=== PATIENT | female | born 1935 | race Caucasian/White ===

== ENCOUNTER 2016-08-27 09:36 | Outpatient (CLI) | payer OTHER | END 2016-08-27 20:00 | disposition home or self-care (01) | LOC: SMA 09:36 | PROVIDERS: ATTEND Internal Medicine | DX: Z12.31 Encounter for screening mammogram for malignant neoplasm of breast (principal) | CPT/HCPCS: G0202 ==

== ENCOUNTER 2017-11-08 12:29 | Inpatient (IN) | payer OTHER ==
[2017-11-08] VITALS (10 sets, daily range): BP systolic 140–152
[~2017-11-08] VITALS: Ht 154.9 cm; Wt 59.4 kg
[2017-11-08 13:41] LABS: MEAN CORPUSCULAR HEMOGLOBIN 21 pg (27-31); MEAN CORPUSCULAR HGB CONC 30 % (32-36); MEAN CORPUSCULAR VOLUME 68 fL (79.0-98.0); PLATELET COUNT (AUTO) 267 K/uL (130-430); RED BLOOD CELL COUNT(AUTO) 2.24 MIL/uL (4.2-6.2); RED CELL DISTRIBUTION WIDTH 20.5 % (9.0-15.0); WHITE BLOOD COUNT (AUTO) 3.4 K/uL (4.8-10.8)
[2017-11-08 13:44] LABS: HEMOGLOBIN 4.6 g/dL (12.0-16.0)
[2017-11-08 13:45] LABS: HEMATOCRIT 15.2 % (36-48)
[2017-11-08 13:49] LABS: ANION GAP 9 (5-15); CALCIUM 9.1 mg/dL (8.4-11.0); CHLORIDE 103 mmol/L (98-107); CREATININE 0.79 mg/dL (0.55-1.30); GLUCOSE 120 mg/dL (70-99); POTASSIUM 3.4 mmol/L (3.5-5.1); SODIUM SERUM 136 mmol/L (136-145); UREA NITROGEN, BLOOD 9 mg/dL (8-21)
[2017-11-08 13:52] LABS: PROTHROMBIN TIME 10.2 SECS (9.5-12.5)
[2017-11-08 13:53] LABS: ALANINE AMINOTRANSFERASE 20 U/L (12-78); ALBUMIN 3.2 g/dL (3.4-4.8); ASPARTATE AMINOTRANSFERASE 17 U/L (10-37); TOTAL BILIRUBIN 0.4 mg/dL (0.0-1.0)
[2017-11-08] MEDS ORDERED: CHOL200041 PO (13:59)
[2017-11-08] MEDS ORDERED: AMLO5TAB92 PO (13:59)
[2017-11-08] MEDS ORDERED: GABA-529 PO (13:59)
[2017-11-08] MEDS ORDERED: SIMV20TA2 PO (13:59)
[2017-11-08] MEDS ORDERED: VIS25 PO (13:59)
[2017-11-08] MEDS ORDERED: POTA20TA83 PO (13:59)
[2017-11-08] MEDS ORDERED: LOSA100T3 PO (13:59)
[2017-11-08] MEDS ORDERED: HCT25 PO (13:59)
[2017-11-08 14:16] LABS: BAND % (MANUAL) 0 % (0-6); BASOPHILS % (MANUAL) 0 % (0-2); EOSINOPHILS % (MANUAL) 0 % (0-7); LYMPHOCYTES % (MANUAL) 24 % (20-46); MONOCYTES % (MANUAL) 12 % (0-11); TOTAL IRON BIND. CAPACITY 477 ug/dL (250-450)
[2017-11-08 15:14] LABS: BILIRUBIN,URINE NEGATIVE (NEGATIVE); BLOOD, URINE NEGATIVE (NEGATIVE); CLARITY/URINE CLEAR (CLEAR); COLOR,URINE YELLOW (YELLOW); GLUCOSE,URINE NEGATIVE (NEGATIVE); KETONES,URINE NEGATIVE (NEGATIVE); LEUKOCYTE ESTERASE ,URINE TRACE (NEGATIVE); NITRITE, URINE NEGATIVE (NEGATIVE); PROTEIN URINE NEGATIVE (NEGATIVE); UROBILINOGEN,URINE 0.2 (0.2-1.0)
[2017-11-08 15:24] LABS: BACTERIA,URINE FEW /HPF (None Seen); RBC,URINE 0-3 /HPF (0-3)
[2017-11-08] MEDS ORDERED: PANTOPRAZOLE SODIUM 40 MG/VIAL (PROTONIX) IVP ONE (16:45)
[2017-11-08] MEDS: D5NS 1,000 ML IV SCH (17:43)
[2017-11-08] MEDS ORDERED: DIATR MEGLU/DIATRIZ SOD 30 ML SOLUTION PO ONE (17:45)
[2017-11-08 18:56] LABS: HEMATOCRIT 24.3 % (36-48); HEMOGLOBIN 7.4 g/dL (12.0-16.0)
[2017-11-08] MEDS: PANTOPRAZOLE SODIUM 40 MG/VIAL (PROTONIX) IVP SCH (21:05)
[2017-11-09] VITALS (20 sets, daily range): BP systolic 116–177
[2017-11-09 01:35] LABS: HEMATOCRIT 28.4 % (36-48); HEMOGLOBIN 8.6 g/dL (12.0-16.0)
[2017-11-09] MEDS: D5NS 1,000 ML IV SCH ×3 (03:07→23:51)
[2017-11-09] MEDS ORDERED: IPRATROPIUM/ALBUTEROL SULFATE 3 ML AMPUL.NEB INH PRN (07:30)
[2017-11-09 07:40] LABS: HEMOGLOBIN 8.9 g/dL (12.0-16.0)
[2017-11-09] MEDS: PANTOPRAZOLE SODIUM 40 MG/VIAL (PROTONIX) IVP SCH ×2 (08:04→20:03)
[2017-11-09] MEDS ORDERED: LOSARTAN POTASSIUM 50 MG TABLET (COZAAR) PO ONE (10:00)
[2017-11-09] MEDS ORDERED: amLODIPine BESYLATE 5 MG TABLET PO ONE (10:00)
[2017-11-09] MEDS ORDERED: SIMETHICONE 40 MG/0.6 ML ML ONE (11:40)
[2017-11-09] MEDS ORDERED: fentaNYL CITRATE/PF 100 MCG/2 ML AMP ONE ×2 (11:40→15:20)
[2017-11-09] MEDS ORDERED: MIDAZOLAM HCL 5 MG/5 ML VIAL ONE ×2 (11:40→15:13)
[2017-11-09 13:32] LABS: HEMATOCRIT 26.6 % (36-48); HEMOGLOBIN 8.6 g/dL (12.0-16.0)
[2017-11-09] MEDS ORDERED: FLUMAZENIL 0.1 MG/ML IVP ONE (15:14)
[2017-11-09] MEDS ORDERED: EPINEPHrine JECT 1 MG/10 ML SYR ONE (15:20)
[2017-11-09] MEDS ORDERED: cloNIDine HCL 0.1 MG TABLET PO PRN (18:00)
[2017-11-09] MEDS ORDERED: SIMVASTATIN 20 MG TABLET PO SCH (18:00)
[2017-11-09 19:27] LABS: HEMATOCRIT 29.3 % (36-48); HEMOGLOBIN 9.4 g/dL (12.0-16.0)
[2017-11-09] MEDS ORDERED: GABAPENTIN 100 MG CAPSULE PO SCH (21:00)
[2017-11-10 01:09] LABS: HEMATOCRIT 28.7 % (36-48); HEMOGLOBIN 9.2 g/dL (12.0-16.0)
[2017-11-10 03:27] VITALS: BP_SYST 152
[2017-11-10 07:01] LABS: HEMATOCRIT 29.1 % (36-48); HEMOGLOBIN 9.2 g/dL (12.0-16.0)
[2017-11-10 08:00] VITALS: BP_SYST 163
[2017-11-10] MEDS: PANTOPRAZOLE SODIUM 40 MG/VIAL (PROTONIX) IVP SCH (08:54)
[2017-11-10] MEDS ORDERED: LOSARTAN POTASSIUM 50 MG TABLET (COZAAR) PO SCH (09:00)
[2017-11-10] MEDS ORDERED: amLODIPine BESYLATE 5 MG TABLET PO SCH (09:00)
[2017-11-10] MEDS: D5NS 1,000 ML IV SCH (09:05)
[2017-11-10 13:07] VITALS: BP_SYST 154
[2017-11-10 13:20] LABS: HEMATOCRIT 31.9 % (36-48); HEMOGLOBIN 10.3 g/dL (12.0-16.0)
[2017-11-10] MEDS ORDERED: OMEP20TA20 PO (14:30)
[2017-11-10 14:56] VITALS: BP_SYST 157
[2017-11-10 16:00] VITALS: BP_SYST 157
== END 2017-11-10 16:14 | disposition home or self-care (01) | DRG 378 ==
LOC: SED 12:29 → SIC 15:34 → SMU 11-09 19:34
PROVIDERS: ADMIT Internal Medicine Hospice and Palliative Medicine; ATTEND Internal Medicine Hospice and Palliative Medicine
PROC: 30253N1 (ICD-10-PCS; principal; 2017-11-08)
PROC: 0DB68ZX Excision of Stomach, Via Natural or Artificial Opening Endoscopic, Diagnostic (ICD-10-PCS; 2017-11-09)
DX: K92.2 Gastrointestinal hemorrhage, unspecified (principal); E44.1 Mild protein-calorie malnutrition; D50.9 Iron deficiency anemia, unspecified; I10 Essential (primary) hypertension; J45.909 Unspecified asthma, uncomplicated; K44.9 Diaphragmatic hernia without obstruction or gangrene; Z80.0 Family history of malignant neoplasm of digestive organs; Z88.0 Allergy status to penicillin; E11.9 Type 2 diabetes mellitus without complications
CPT/HCPCS: 36415; 43239; 71045; 80053; 81000-TC; 82272; 82550-TC; 83540-TC; 83550-TC; 84484; 85007; 85018-TC; 85027; 85610-TC; 85730-TC; 86886; 86900; 86901; 86920; 87081; 87086; 88305; 88312; 88313; 93005; 94640; 99291; C9113; J0171; J2250; J3010; J3490; J7030; J7042; J7050; J7620; P9021; Q9964

== ENCOUNTER 2021-08-06 11:05 | Inpatient (IN) | payer OTHER, MEDICAID ==
[~2021-08-06] VITALS: Ht 154.9 cm; Wt 53.5 kg
[~2021-08-06 11:05] MED LIST: ALBU2.5V7 INH; AMLO5TAB92 PO; CETI10CA PO; CHOL200041 PO; GABA-529 PO; LOSA100T3 PO; OMEP20TA20 PO; POTA-197 PO; SIMV20TA2 PO; VIS25 PO
[2021-08-06 11:13] VITALS: BP_SYST 136
--- NOTE | 2021-08-06 11:31 | NUR ---
Placed in room 5 . Placed on environmental monitoring specialist, blood pressure machine and pulse oximeter. To gown for exam. Side rails up. Report given to QUINTIN YOST.
--- NOTE | 2021-08-06 11:32 | NUR ---
Pt brought by family from home. Pt states she was advised by her primary care provider to come to the ER for low H&H levels. Pt is A&Ox3. Ambulatory with unsteady gait. Advised to not to get out of bed alone and to ask for help. Safety measures in place. Skin intact. No chest pain and no sob. Denies n/v. Allergic to Penicillin. Has hx of HTN. Bed in lowest position.
--- NOTE | 2021-08-06 11:34 | NUR ---
ER at bedside examining patient.
--- NOTE | 2021-08-06 11:48 | NUR ---
# 20 gauge angiocath placed to right forearm. Use of asceptic technique. Opsite placed over site. Blood return noted. Blood for lab drawn from site. Flushed with 10 cc of normal saline. No evidence of infiltration noted. Patient tolerated well.
--- NOTE | 2021-08-06 11:51 | NUR ---
Covid swab done and sent to lab.
[2021-08-06 11:57] LABS: BASOPHILS # (AUTO) 0.1 K/uL (0.0-0.2); BASOPHILS % (AUTO) 2.5 % (0.0-2.0); EOSINOPHILS % (AUTO) 0.2 % (0.0-4.0); HEMATOCRIT 22.9 % (36-48); HEMOGLOBIN 7.1 g/dL (12.0-16.0); LYMPHOCYTES # (AUTO) 0.8 K/uL (1.0-5.5); LYMPHOCYTES % (AUTO) 18.1 % (20.5-51.5); MEAN CORPUSCULAR HEMOGLOBIN 23 pg (27-31); MEAN CORPUSCULAR HGB CONC 31 % (32-36); MEAN CORPUSCULAR VOLUME 73 fL (79.0-98.0); MONOCYTES # (AUTO) 0.5 K/uL (0.0-1.0); MONOCYTES % (AUTO) 10.9 % (1.7-9.3); NEUTROPHILS # (AUTO) 2.9 K/uL (1.8-7.7); NEUTROPHILS % (AUTO) 68.3 % (40.0-70.0); PLATELET COUNT (AUTO) 352 K/uL (130-430); RED BLOOD CELL COUNT(AUTO) 3.12 MIL/uL (4.2-6.2); WHITE BLOOD COUNT (AUTO) 4.3 K/uL (4.8-10.8)
--- NOTE | 2021-08-06 12:04 | NUR ---
EKG performed at BS by FRANKIE Au. Physician given copy of EKG for review.
[2021-08-06 12:32] LABS: ALANINE AMINOTRANSFERASE 18 U/L (12-78); ALBUMIN 3.4 g/dL (3.4-4.8); ANION GAP 7 (5-15); ASPARTATE AMINOTRANSFERASE 22 U/L (10-37); CALCIUM 8.6 mg/dL (8.4-11.0); CHLORIDE 104 mmol/L (98-107); CREATININE 0.65 mg/dL (0.55-1.30); GLUCOSE 106 mg/dL (70-99); SODIUM SERUM 135 mmol/L (136-145); TOTAL BILIRUBIN 0.5 mg/dL (0.0-1.0); UREA NITROGEN, BLOOD 8 mg/dL (8-21)
[2021-08-06] MEDS ORDERED: POTASSIUM CHLORIDE 20 MEQ TAB.PRT.SR PO ONE (13:00)
--- NOTE | 2021-08-06 13:08 | NUR ---
Blood consent obtained and packet sent to lab.
--- NOTE | 2021-08-06 13:15 | NUR ---
Personal Belonging List Completed.
--- NOTE | 2021-08-06 13:28 | NUR ---
DR DOMINGO SPEAKING WITH DR FARMER
[2021-08-06] MEDS ORDERED: HYDROcodone/ACETAMIN 5-325 MG TAB (NORCO/ VICODIN) PO PRN (13:30)
[2021-08-06] MEDS ORDERED: LORazepam 2 MG/ML VIAL IVP PRN ×2 (13:30→13:45)
--- NOTE | 2021-08-06 13:34 | NUR ---
Pt unable to provide current list of her medications. Called her son but no answer.
--- NOTE | 2021-08-06 13:37 | NUR ---
Admit bed requested Patient will be admitted to care of . Admitted to Tele unit. Diagnosis Anemia Inpatient (Yes or No) Yes Observation (Yes or No) No Orientation concerns or request close to nursing station (Yes or No) No Covid Status Negative On vent or bipap No Isolation requirements No Needs a sitter No From Home (Yes or if No enter name of facility) Yes Requires Dialysis (Yes or No) No Med Rec Completed (Yes of No) Yes
[2021-08-06] MEDS ORDERED: MUPIROCIN 2% TOPICAL OINTMENT 22 GM NS PRN (13:45)
[2021-08-06] MEDS ORDERED: ZOLPIDEM TARTRATE 5 MG TABLET PO PRN (13:45)
[2021-08-06] MEDS ORDERED: DOCUSATE SODIUM 100 MG CAPSULE PO PRN (13:45)
[2021-08-06] MEDS ORDERED: ACETAMINOPHEN 325 MG TABLET PO PRN ×2 (13:45)
[2021-08-06] MEDS ORDERED: MORPHINE 2 MG/ML INJ. SYRINGE IVP PRN ×2 (13:45)
[2021-08-06] MEDS ORDERED: MAGNESIUM SULFATE 50 ML IV PRN (13:45)
[2021-08-06] MEDS ORDERED: ONDANSETRON HCL 4 MG/2 ML VIAL IVP PRN (13:45)
--- NOTE | 2021-08-06 14:10 | NUR ---
Patient will be admitted to care of QUINTIN Zhu. Admitted to Tele unit. Will go to room 101A. Belongings list completed. Complete and up to date summary report printed. SBAR report to be given at bedside with opportunity for questions.
[2021-08-06 15:00] VITALS: BP_SYST 145
[2021-08-06 15:06] VITALS: BP_SYST 145
--- NOTE | 2021-08-06 15:30 | NUR ---
CONSULTATION PAGED REASON FOR CONSULTATION ANEMIA WAS CONSULT CALED?Y PERSON WHO WAS NOTIFIED:TACOS CONSULTING PHYSICIAN:ALLEN MOODY DIE WELDER SPECIALTY:GI DIE WELDER PHONE NUMBER:[phone] REQUESTING PHYSICIAN:
[2021-08-06] MEDS ORDERED: BISACODYL 5 MG TABLET.DR (DULCOLAX) PO ONE (17:30)
[2021-08-06] MEDS ORDERED: GOLYTELY / COLYTE SOLUTION 4 LITERS PO ONE (17:30)
[2021-08-06] MEDS: SIMVASTATIN 20 MG TABLET PO SCH (19:19)
[2021-08-06 20:01] VITALS: BP_SYST 141
[2021-08-06] MEDS: GABAPENTIN 100 MG CAPSULE PO SCH (21:36)
--- NOTE | 2021-08-06 23:02 | NUR ---
BT INITIATION: Consent signed per patient agreeing to administration of blood. Blood has been type and crossmatched. Blood sent from blood bank. Information on unit of blood checked against patient wristband at bedside by two nurses. All information matches. Patient or responsible democrat informed of potential complications associated with blood transfusion. Informed of possible transfusion reaction symptoms. Aware of need to notify nurse at once of itching, shortness of breath, flushing, feeling of impending doom, or other symptoms not previously present. Vital signs taken within 15 minutes prior to initiation of transfusion. RN will remain with patient for first 15 minutes of transfusion at which time vital signs will be re-assessed.
[2021-08-07 00:57] VITALS: BP_SYST 127
--- NOTE | 2021-08-07 01:56 | NUR ---
blood transfusion complete of 1 unit no reactions noted; current vs: bp: 148/76. hr:70, :spo2: 99%, rr: 16, t:97.1
--- NOTE | 2021-08-07 06:38 | NUR ---
PT DID NOT FINISH THE GOLYTE WE TRIED MULTIPLE TIMES TO GET HER TO DRINK IT, SHE DRANK ABOUT HALF A GALLON, CALLED ROB VALDIVIA AND WAITING FOR CALL BACK.
--- NOTE | 2021-08-07 06:51 | NUR ---
SPOKE TO DR LANDAVERDE AND NOTIFIED HIM ABOUT THE PATIENT NOT FINISHING THE GOLYTE AND PT NOT LETTING US DO THE TAP ENEMA IN THE MORNING. STATED TO STILL KEEP HER NPO.
[2021-08-07 07:25] LABS: BASOPHILS % (AUTO) 0.6 % (0.0-2.0); EOSINOPHILS # (AUTO) 0.1 K/uL (0.0-0.4); EOSINOPHILS % (AUTO) 1.8 % (0.0-4.0); HEMATOCRIT 27.3 % (36-48); HEMOGLOBIN 8.8 g/dL (12.0-16.0); LYMPHOCYTES # (AUTO) 1.2 K/uL (1.0-5.5); LYMPHOCYTES % (AUTO) 29.5 % (20.5-51.5); MEAN CORPUSCULAR HEMOGLOBIN 24 pg (27-31); MEAN CORPUSCULAR HGB CONC 32 % (32-36); MEAN CORPUSCULAR VOLUME 75 fL (79.0-98.0); MONOCYTES # (AUTO) 0.6 K/uL (0.0-1.0); MONOCYTES % (AUTO) 13.4 % (1.7-9.3); NEUTROPHILS # (AUTO) 2.3 K/uL (1.8-7.7); NEUTROPHILS % (AUTO) 54.7 % (40.0-70.0); PLATELET COUNT (AUTO) 332 K/uL (130-430); RED BLOOD CELL COUNT(AUTO) 3.62 MIL/uL (4.2-6.2); WHITE BLOOD COUNT (AUTO) 4.2 K/uL (4.8-10.8)
[2021-08-07] MEDS ORDERED: MAGNESIUM CITRATE 300 ML ORAL SOLUTION PO ONE ×2 (07:45→08:15)
[2021-08-07 08:00] VITALS: BP_SYST 141
[2021-08-07 08:06] LABS: ANION GAP 9 (5-15); CALCIUM 8.4 mg/dL (8.4-11.0); CHLORIDE 106 mmol/L (98-107); CREATININE 0.64 mg/dL (0.55-1.30); GLUCOSE 107 mg/dL (70-99); POTASSIUM 3.2 mmol/L (3.5-5.1); SODIUM SERUM 139 mmol/L (136-145); UREA NITROGEN, BLOOD 11 mg/dL (8-21)
[2021-08-07] MEDS: PANTOPRAZOLE SODIUM 40 MG/VIAL (PROTONIX) IVP SCH (08:18)
[2021-08-07] MEDS: amLODIPine BESYLATE 5 MG TABLET PO SCH (08:20)
[2021-08-07] MEDS: LOSARTAN POTASSIUM 50 MG TABLET (COZAAR) PO SCH (09:00)
[2021-08-07] MEDS: CHOLECALCIFEROL (VITAMIN D3) 5,000 UNIT TABLET PO SCH (09:00)
[2021-08-07] MEDS ORDERED: SIMETHICONE 40 MG/0.6 ML ML ONE (10:31)
[2021-08-07] MEDS: MIDAZOLAM HCL 5 MG/5 ML VIAL ONE ×3 (10:59→11:22)
[2021-08-07] MEDS: MEPERIDINE 100 MG INJ. 100 MG/ML VIAL ONE ×3 (10:59→11:22)
[2021-08-07] MEDS ORDERED: DOCUSATE SODIUM 250 MG CAPSULE PO ONE (12:00)
[2021-08-07] MEDS: POLYETHYLENE GLYCOL 3350, 17 GM/ POWD.PACK PO SCH ×3 (13:00→20:13)
[2021-08-07 13:34] VITALS: BP_SYST 130
[2021-08-07 16:00] VITALS: BP_SYST 138
[2021-08-07] MEDS: SIMVASTATIN 20 MG TABLET PO SCH (18:00)
[2021-08-07 19:56] VITALS: BP_SYST 140
[2021-08-07] MEDS: GABAPENTIN 100 MG CAPSULE PO SCH (20:12)
[2021-08-07] MEDS: DOCUSATE SODIUM 250 MG CAPSULE PO SCH (20:13)
[2021-08-08 00:39] VITALS: BP_SYST 127
[2021-08-08] MEDS: ACETAMINOPHEN 325 MG TABLET PO PRN ×2 (05:55→09:43)
[2021-08-08 08:00] VITALS: BP_SYST 122
[2021-08-08 08:27] LABS: BASOPHILS % (AUTO) 0.5 % (0.0-2.0); EOSINOPHILS % (AUTO) 0.7 % (0.0-4.0); HEMATOCRIT 25.7 % (36-48); HEMOGLOBIN 8.1 g/dL (12.0-16.0); LYMPHOCYTES # (AUTO) 0.7 K/uL (1.0-5.5); MEAN CORPUSCULAR HEMOGLOBIN 24 pg (27-31); MEAN CORPUSCULAR HGB CONC 32 % (32-36); MEAN CORPUSCULAR VOLUME 76 fL (79.0-98.0); MONOCYTES # (AUTO) 0.7 K/uL (0.0-1.0); MONOCYTES % (AUTO) 11.2 % (1.7-9.3); NEUTROPHILS # (AUTO) 5.1 K/uL (1.8-7.7); NEUTROPHILS % (AUTO) 77.6 % (40.0-70.0); PLATELET COUNT (AUTO) 293 K/uL (130-430); RED BLOOD CELL COUNT(AUTO) 3.38 MIL/uL (4.2-6.2); RED CELL DISTRIBUTION WIDTH 20.3 % (9.0-15.0)
[2021-08-08 08:34] LABS: ANION GAP 9 (5-15); CALCIUM 7.8 mg/dL (8.4-11.0); CHLORIDE 106 mmol/L (98-107); CREATININE 0.64 mg/dL (0.55-1.30); GLUCOSE 87 mg/dL (70-99); SODIUM SERUM 140 mmol/L (136-145); UREA NITROGEN, BLOOD 7 mg/dL (8-21)
[2021-08-08] MEDS: DOCUSATE SODIUM 250 MG CAPSULE PO SCH ×2 (09:28→20:58)
[2021-08-08] MEDS: CHOLECALCIFEROL (VITAMIN D3) 5,000 UNIT TABLET PO SCH (09:28)
[2021-08-08] MEDS: amLODIPine BESYLATE 5 MG TABLET PO SCH (09:29)
[2021-08-08] MEDS: POLYETHYLENE GLYCOL 3350, 17 GM/ POWD.PACK PO SCH ×4 (09:30→20:58)
[2021-08-08] MEDS: PANTOPRAZOLE SODIUM 40 MG/VIAL (PROTONIX) IVP SCH (09:34)
[2021-08-08 09:41] LABS: POTASSIUM 2.2 mmol/L (3.5-5.1)
[2021-08-08] MEDS ORDERED: POTASSIUM CHLORIDE 40 MEQ in NS 250 ML IV ONE (10:00)
--- NOTE | 2021-08-08 10:09 | NUR ---
HIGH ALERT NOTE: Called Dr. Oleary identified within the medical roster to verify physician authenticity for krider orders.
[2021-08-08] MEDS: POTASSIUM CHLORIDE 20 mEq in 100 mL (PREMIX) 100 ML x 2 doses IV SCH ×2 (10:27→12:52)
[2021-08-08] MEDS: NACL 0.9% 1,000 ML IV SCH (10:27)
[2021-08-08 10:58] LABS: WHITE BLOOD COUNT (AUTO) 6.6 K/uL (4.8-10.8)
[2021-08-08] MEDS: LOSARTAN POTASSIUM 50 MG TABLET (COZAAR) PO SCH (12:36)
[2021-08-08 12:50] VITALS: BP_SYST 120
[2021-08-08 16:50] VITALS: BP_SYST 123
[2021-08-08] MEDS ORDERED: MAGNESIUM CITRATE 300 ML ORAL SOLUTION PO ONE (17:15)
[2021-08-08] MEDS ORDERED: SORBITOL 70% SOLUTION, 30 ML UDBTL PO ONE (17:30)
[2021-08-08] MEDS: SIMVASTATIN 20 MG TABLET PO SCH (19:37)
[2021-08-08 20:00] VITALS: BP_SYST 114
--- NOTE | 2021-08-08 20:00 | NUR ---
opening note patient was given education about clear liquid diet and bowel prep for Tuesday. Bed alarm is placed on and 2 side rails are up and bed is placed in lowest setting. patient is AOx 3
[2021-08-08] MEDS: GABAPENTIN 100 MG CAPSULE PO SCH (20:58)
[2021-08-09 00:01] VITALS: BP_SYST 110
--- NOTE | 2021-08-09 00:30 | NUR ---
incontinent the patient is having recurrent incontinents of the bowel due to multiple laxatives given.
[2021-08-09] MEDS: NACL 0.9% 1,000 ML IV SCH ×2 (04:31→18:30)
--- NOTE | 2021-08-09 07:30 | NUR ---
Closing Patient got up to the bedside commode with x1 assist and had multiple brown bowel movements. IV fluids running as ordered. No complaint of pain, unlabored breathing on room air. Care endorsed to oncoming nurse.
[2021-08-09 08:00] VITALS: BP_SYST 141
[2021-08-09 08:03] LABS: BASOPHILS % (AUTO) 0.2 % (0.0-2.0); EOSINOPHILS % (AUTO) 0.1 % (0.0-4.0); HEMATOCRIT 24.5 % (36-48); HEMOGLOBIN 7.7 g/dL (12.0-16.0); LYMPHOCYTES # (AUTO) 0.8 K/uL (1.0-5.5); LYMPHOCYTES % (AUTO) 7.2 % (20.5-51.5); MEAN CORPUSCULAR HEMOGLOBIN 24 pg (27-31); MEAN CORPUSCULAR HGB CONC 32 % (32-36); MEAN CORPUSCULAR VOLUME 77 fL (79.0-98.0); MONOCYTES # (AUTO) 1.6 K/uL (0.0-1.0); MONOCYTES % (AUTO) 15.1 % (1.7-9.3); NEUTROPHILS # (AUTO) 8.4 K/uL (1.8-7.7); NEUTROPHILS % (AUTO) 77.4 % (40.0-70.0); PLATELET COUNT (AUTO) 272 K/uL (130-430); RED CELL DISTRIBUTION WIDTH 20.3 % (9.0-15.0)
[2021-08-09] MEDS ORDERED: SORBITOL 70% SOLUTION, 30 ML UDBTL PO ONE (08:30)
[2021-08-09 08:33] LABS: ANION GAP 8 (5-15); CALCIUM 8.1 mg/dL (8.4-11.0); CHLORIDE 109 mmol/L (98-107); CREATININE 0.66 mg/dL (0.55-1.30); GLUCOSE 110 mg/dL (70-99); SODIUM SERUM 140 mmol/L (136-145); UREA NITROGEN, BLOOD 10 mg/dL (8-21)
[2021-08-09] MEDS: POLYETHYLENE GLYCOL 3350, 17 GM/ POWD.PACK PO SCH ×7 (09:00→21:20)
[2021-08-09] MEDS: ACETAMINOPHEN 325 MG TABLET PO PRN ×2 (09:20→18:27)
[2021-08-09] MEDS: amLODIPine BESYLATE 5 MG TABLET PO SCH (09:34)
[2021-08-09] MEDS: PANTOPRAZOLE SODIUM 40 MG/VIAL (PROTONIX) IVP SCH (09:34)
[2021-08-09 09:35] LABS: POTASSIUM 2.8 mmol/L (3.5-5.1)
[2021-08-09] MEDS: DOCUSATE SODIUM 250 MG CAPSULE PO SCH ×2 (09:35→21:20)
[2021-08-09] MEDS: CHOLECALCIFEROL (VITAMIN D3) 5,000 UNIT TABLET PO SCH (09:35)
[2021-08-09] MEDS: POTASSIUM CHLORIDE 20 MEQ TAB.PRT.SR PO PRN (09:54)
[2021-08-09] MEDS ORDERED: POTASSIUM CHLORIDE 20 MEQ TAB.PRT.SR PO ONE (11:00)
[2021-08-09 11:15] LABS: WHITE BLOOD COUNT (AUTO) 10.8 K/uL (4.8-10.8)
[2021-08-09] MEDS ORDERED: POTASSIUM CHLORIDE 40 MEQ in NS 250 ML IV ONE (12:00)
[2021-08-09] MEDS: LOSARTAN POTASSIUM 50 MG TABLET (COZAAR) PO SCH (12:18)
[2021-08-09 12:36] VITALS: BP_SYST 106
--- NOTE | 2021-08-09 16:15 | NUR ---
Stools are very frequent and clear. No further prep will be administered
[2021-08-09 16:55] VITALS: BP_SYST 109
[2021-08-09] MEDS ORDERED: BISACODYL 5 MG TABLET.DR (DULCOLAX) PO ONE (17:00)
[2021-08-09] MEDS: SIMVASTATIN 20 MG TABLET PO SCH (18:27)
--- NOTE | 2021-08-09 18:45 | NUR ---
Miss Kebede has been assessed as indicated. She has been successfully treated for a headache x2 this shift . She has been stooling frequently the output has no stool but has taken on an orange color. She is forgetful and has to be frequently redirected to stay in the bed and wait for assistance. She has voided and stooled on the floor often. She is aware of and compliant with the plan to have a colonoscopy tomorrow
[2021-08-09 19:00] VITALS: BP_SYST 139
[2021-08-09] MEDS ORDERED: MAGNESIUM CITRATE 300 ML ORAL SOLUTION PO ONE (19:00)
--- NOTE | 2021-08-09 19:15 | NUR ---
Hand off has been given to sylvia
--- NOTE | 2021-08-09 19:15 | NUR ---
change of shift.pt.presents quiescent affect;calm,resting.pt.to submit to colonoscopy in am.pt.in accord.pt.utilizing bsc;w/in access of the pt.pt.presents iv access location:rt.forearm,intact;patent iv fluids infusing.no c/o pain,nausea.pt.capable to reposition self.general status stable.respiratory status stable;unlabored@room air.call light/telephone w/in access of the pt.
[2021-08-09 20:00] VITALS: BP_SYST 139
--- NOTE | 2021-08-09 20:00 | NUR ---
pt.assessed.v/s assessed values wnl.pt.assisted to the bsc.per frankie;manager cost.pt.assisted return to bed. pt.repositioned.no c/pain,nausea.iv access intact;patent.i have apprised the pt.that snacks/beverages are available until midnight:diet converts to npo;colonoscopy in am.no requests posited@this hour.pt.capable to reposition self.call light/telephone placed w/in access of the pt.
--- NOTE | 2021-08-09 21:00 | NUR ---
2100p medications administered.pt.capable to ingest the po medications w/out difficulty.no c/o pain.nausea. no requests posited@this hour.call light/telephone placed w/in access of the pt.
[2021-08-09] MEDS: GABAPENTIN 100 MG CAPSULE PO SCH (21:20)
--- NOTE | 2021-08-09 22:00 | NUR ---
pt.assessed.pt.presents quiescent affect;calm,somnolent.per flacc pain mgx pt.absent facial grimaces/body posturing. pt.assessed for cleanliness.pt.capable to reposition self.iv access intact;patent.bsc w/in access of the pt.call light/ telephone placed w/in access of the pt.
[2021-08-10] VITALS: BP_SYST 132
--- NOTE | 2021-08-10 | NUR ---
pt.assessed.v/s assessed values wnl.no c/o pain,nausea.re-iterated to pt/that diet status converted to npo status;colonoscopy in am.pt.capable to reposition self.bsc w/in access of the pt.iv access intact;patent.call light/telephone placed w/in access of the pt.
--- NOTE | 2021-08-10 02:00 | NUR ---
pt.assessed.pt.assisted to the bsc..pt.returned to bed/repositioned.iv access intact;patent.general status stable respiratory status stable;unlabored.call light/telephone placed w/in access of the pt.
--- NOTE | 2021-08-10 04:00 | NUR ---
pt.assessed.pt.presents quiescent affect;calm,somnolent.per flacc pain mgx pt.absent facial grimaces/body posturing. pt.assessed for cleanliness.pt.repositioned.bsc w/in access of the pt.call light/telephone placed w/in access of the pt.
--- NOTE | 2021-08-10 06:35 | NUR ---
pt.assessed.pt.repositioned.no c/o pain,nausea.iv access intact;patent.call light/telephone w/in access of the [place] [place] pt. Addendum: 08/10/21 at 0701 by Pradeep Edgar RN pt.refused enema.
[2021-08-10 07:18] LABS: BASOPHILS % (AUTO) 0.2 % (0.0-2.0); EOSINOPHILS # (AUTO) 0.1 K/uL (0.0-0.4); EOSINOPHILS % (AUTO) 1.2 % (0.0-4.0); HEMATOCRIT 26.5 % (36-48); HEMOGLOBIN 8.3 g/dL (12.0-16.0); LYMPHOCYTES % (AUTO) 14.2 % (20.5-51.5); MEAN CORPUSCULAR HEMOGLOBIN 24 pg (27-31); MEAN CORPUSCULAR HGB CONC 31 % (32-36); MEAN CORPUSCULAR VOLUME 77 fL (79.0-98.0); MONOCYTES # (AUTO) 0.8 K/uL (0.0-1.0); MONOCYTES % (AUTO) 11.3 % (1.7-9.3); NEUTROPHILS # (AUTO) 5.3 K/uL (1.8-7.7); NEUTROPHILS % (AUTO) 73.1 % (40.0-70.0); PLATELET COUNT (AUTO) 280 K/uL (130-430); RED BLOOD CELL COUNT(AUTO) 3.47 MIL/uL (4.2-6.2); RED CELL DISTRIBUTION WIDTH 20.4 % (9.0-15.0); WHITE BLOOD COUNT (AUTO) 7.2 K/uL (4.8-10.8)
[2021-08-10 07:27] LABS: INR 0.9 (0.8-1.2); PROTHROMBIN TIME 9.2 SECS (9.5-12.5)
[2021-08-10 07:33] LABS: ANION GAP 7 (5-15); CALCIUM 8.3 mg/dL (8.4-11.0); CHLORIDE 109 mmol/L (98-107); CREATININE 0.66 mg/dL (0.55-1.30); GLUCOSE 94 mg/dL (70-99); POTASSIUM 3.6 mmol/L (3.5-5.1); SODIUM SERUM 138 mmol/L (136-145); UREA NITROGEN, BLOOD 7 mg/dL (8-21)
[2021-08-10] MEDS ORDERED: SIMETHICONE 40 MG/0.6 ML ML ONE (07:38)
[2021-08-10 08:00] VITALS: BP_SYST 152
[2021-08-10] MEDS: POLYETHYLENE GLYCOL 3350, 17 GM/ POWD.PACK PO SCH ×4 (08:44→21:37)
[2021-08-10] MEDS: DOCUSATE SODIUM 250 MG CAPSULE PO SCH ×2 (08:44→21:37)
[2021-08-10 12:23] VITALS: BP_SYST 142
[2021-08-10] MEDS: LOSARTAN POTASSIUM 50 MG TABLET (COZAAR) PO SCH (13:37)
[2021-08-10] MEDS: PANTOPRAZOLE SODIUM 40 MG/VIAL (PROTONIX) IVP SCH (13:38)
[2021-08-10] MEDS: amLODIPine BESYLATE 5 MG TABLET PO SCH (13:39)
[2021-08-10] MEDS: CHOLECALCIFEROL (VITAMIN D3) 5,000 UNIT TABLET PO SCH (13:39)
[2021-08-10] MEDS: MIDAZOLAM HCL 5 MG/5 ML VIAL ONE ×4 (15:00→15:21)
[2021-08-10] MEDS: fentaNYL CITRATE/PF 100 MCG/2 ML AMP ONE ×4 (15:02→15:16)
[2021-08-10 16:00] VITALS: BP_SYST 157
--- NOTE | 2021-08-10 16:00 | NUR ---
Miss Fournier has retunred from GI. This travel writer was informed that the colonoscopy was incomplete. She will need a Barium swallow exam. This will be completed tomorrow She will be permitted to have a clear liquid dinner and will be NPO after MN for the procedure. She is resting quietly a this time Addendum: 08/10/21 at 1642 by Lashonda Reeder RN Louis Camacho ([phone]) Miss Kebede's son has been made aware of he return from GI lab. he is also aware of the planned barium swallow exam for tomorrow
[2021-08-10 16:30] VITALS: BP_SYST 159
[2021-08-10] MEDS: SIMVASTATIN 20 MG TABLET PO SCH (18:35)
[2021-08-10] MEDS: NACL 0.9% 1,000 ML IV SCH (18:35)
--- NOTE | 2021-08-10 18:45 | NUR ---
Miss Kebede has been assessed as indicated. she continues to deny pain. She has gone to GI lab for a colonoscopy. she will have a barium slow test as a follow up procedure tomorrow. she is having a clear liquid dinner at this time and has tolerated it well. She is resting comfortably with no s/s of distress or discomfort
--- NOTE | 2021-08-10 19:25 | NUR ---
Handoff has been given to Mio
[2021-08-10 20:20] VITALS: BP_SYST 162
[2021-08-10] MEDS: GABAPENTIN 100 MG CAPSULE PO SCH (21:37)
[2021-08-11 00:31] VITALS: BP_SYST 141
[2021-08-11] MEDS: NACL 0.9% 1,000 ML IV SCH (05:15)
[2021-08-11 07:30] LABS: BASOPHILS % (AUTO) 0.4 % (0.0-2.0); EOSINOPHILS # (AUTO) 0.2 K/uL (0.0-0.4); EOSINOPHILS % (AUTO) 2.8 % (0.0-4.0); HEMATOCRIT 25.7 % (36-48); HEMOGLOBIN 8.1 g/dL (12.0-16.0); LYMPHOCYTES # (AUTO) 0.9 K/uL (1.0-5.5); MEAN CORPUSCULAR HEMOGLOBIN 24 pg (27-31); MEAN CORPUSCULAR HGB CONC 31 % (32-36); MEAN CORPUSCULAR VOLUME 76 fL (79.0-98.0); MONOCYTES # (AUTO) 0.8 K/uL (0.0-1.0); MONOCYTES % (AUTO) 14.1 % (1.7-9.3); NEUTROPHILS % (AUTO) 67.7 % (40.0-70.0); PLATELET COUNT (AUTO) 309 K/uL (130-430); RED CELL DISTRIBUTION WIDTH 21.3 % (9.0-15.0); WHITE BLOOD COUNT (AUTO) 5.9 K/uL (4.8-10.8)
[2021-08-11 07:59] LABS: ANION GAP 9 (5-15); CALCIUM 8.5 mg/dL (8.4-11.0); CHLORIDE 105 mmol/L (98-107); GLUCOSE 79 mg/dL (70-99); SODIUM SERUM 137 mmol/L (136-145); UREA NITROGEN, BLOOD 5 mg/dL (8-21)
[2021-08-11 08:00] VITALS: BP_SYST 121
[2021-08-11] MEDS: DOCUSATE SODIUM 250 MG CAPSULE PO SCH (08:02)
[2021-08-11] MEDS: POLYETHYLENE GLYCOL 3350, 17 GM/ POWD.PACK PO SCH ×2 (08:02→08:03)
--- NOTE | 2021-08-11 09:00 | NUR ---
miss Kebede has been assessed as indicated. She continues to deny pain. She anticipates that she will be DC home today. We are currently awaiting results of barium swallow exam. At this time she is resting quietly. She has been provided with a soft breakfast and has tolerated this well.
[2021-08-11 09:02] LABS: POTASSIUM 2.8 mmol/L (3.5-5.1)
--- NOTE | 2021-08-11 09:10 | NUR ---
Dr. Jain at bedside made aware of Potassium level. New orders received
[2021-08-11] MEDS: PANTOPRAZOLE SODIUM 40 MG/VIAL (PROTONIX) IVP SCH (09:58)
[2021-08-11] MEDS: LOSARTAN POTASSIUM 50 MG TABLET (COZAAR) PO SCH (09:59)
[2021-08-11] MEDS: POTASSIUM CHLORIDE 20 MEQ TAB.PRT.SR PO PRN (09:59)
[2021-08-11] MEDS: CHOLECALCIFEROL (VITAMIN D3) 5,000 UNIT TABLET PO SCH (09:59)
[2021-08-11] MEDS: amLODIPine BESYLATE 5 MG TABLET PO SCH (09:59)
[2021-08-11 12:00] VITALS: BP_SYST 139
[2021-08-11] MEDS ORDERED: POTASSIUM CHLORIDE 20 MEQ TAB.PRT.SR PO ONE (13:00)
[2021-08-11 13:41] VITALS: BP_SYST 121
--- NOTE | 2021-08-11 15:30 | NUR ---
miss Kebede has been DC to home. DC instructions were reviewed with her as well as her son. They both expressed that they understood and signed a document to illustrate this. IV access was removed. the heart monitor was removed. At the time of DC Miss Kebede was compliant with the plan to DC home and was pleased that her son was picking her up. There were no s/s of distress or discomfort noted.She was escorted to the front door via WC and was driven away in a private vehicle.
== END 2021-08-11 15:35 | disposition home or self-care (01) | DRG 392 ==
LOC: SED 11:05 → SMU 13:28 → STU 14:09
PROVIDERS: ADMIT Family Medicine; ATTEND Internal Medicine Hospice and Palliative Medicine
PROC: 30233N1 Transfusion of Nonautologous Red Blood Cells into Peripheral Vein, Percutaneous Approach (ICD-10-PCS; 2021-08-06)
PROC: 0DB78ZX Excision of Stomach, Pylorus, Via Natural or Artificial Opening Endoscopic, Diagnostic (ICD-10-PCS; principal; 2021-08-07 10:30)
PROC: 0DJD8ZZ Inspection of Lower Intestinal Tract, Via Natural or Artificial Opening Endoscopic (ICD-10-PCS; 2021-08-07 10:30)
PROC: 0DJD8ZZ Inspection of Lower Intestinal Tract, Via Natural or Artificial Opening Endoscopic (ICD-10-PCS; 2021-08-10)
DX: K29.70 Gastritis, unspecified, without bleeding (principal); K64.8 Other hemorrhoids; K57.30 Diverticulosis of large intestine without perforation or abscess without bleeding; D50.9 Iron deficiency anemia, unspecified; K44.9 Diaphragmatic hernia without obstruction or gangrene; E78.5 Hyperlipidemia, unspecified; I10 Essential (primary) hypertension; E87.6 Hypokalemia; Z20.822 Contact with and (suspected) exposure to COVID-19; J45.909 Unspecified asthma, uncomplicated; Z88.0 Allergy status to penicillin; Z79.899 Other long term (current) drug therapy; Z90.710 Acquired absence of both cervix and uterus
CPT/HCPCS: 36415; 36430; 43239; 45378; 74270-TC; 80048; 80053; 83735; 84132; 85025; 85610-TC; 85730-TC; 86886; 86900; 86901; 86920; 87081; 88305; 88312; 88313; 93005; 99285; C9113; G0378; J2060; J2175; J2250; J3010; J3480; J7050; P9021

== ENCOUNTER 2021-09-28 10:39 | Inpatient (IN) | payer OTHER, MEDICAID ==
[~2021-09-28] VITALS: Ht 154.9 cm; Wt 53.5 kg
[2021-09-28 11:19] VITALS: BP_SYST 136
[2021-09-28 12:41] LABS: BASOPHILS % (AUTO) 0.5 % (0.0-2.0); EOSINOPHILS # (AUTO) 0.1 K/uL (0.0-0.4); EOSINOPHILS % (AUTO) 1.2 % (0.0-4.0); HEMATOCRIT 23.3 % (36-48); HEMOGLOBIN 7.6 g/dL (12.0-16.0); LYMPHOCYTES # (AUTO) 0.7 K/uL (1.0-5.5); LYMPHOCYTES % (AUTO) 14.2 % (20.5-51.5); MEAN CORPUSCULAR HEMOGLOBIN 27 pg (27-31); MEAN CORPUSCULAR HGB CONC 33 % (32-36); MEAN CORPUSCULAR VOLUME 82 fL (79.0-98.0); MONOCYTES # (AUTO) 0.4 K/uL (0.0-1.0); MONOCYTES % (AUTO) 8.2 % (1.7-9.3); NEUTROPHILS % (AUTO) 75.9 % (40.0-70.0); PLATELET COUNT (AUTO) 475 K/uL (130-430); RED BLOOD CELL COUNT(AUTO) 2.84 MIL/uL (4.2-6.2); WHITE BLOOD COUNT (AUTO) 5.2 K/uL (4.8-10.8)
[2021-09-28 12:55] LABS: ANION GAP 9 (5-15); CALCIUM 8.7 mg/dL (8.4-11.0); CHLORIDE 106 mmol/L (98-107); CREATININE 0.64 mg/dL (0.55-1.30); GLUCOSE 129 mg/dL (70-99); POTASSIUM 4.4 mmol/L (3.5-5.1); SODIUM SERUM 140 mmol/L (136-145); UREA NITROGEN, BLOOD 12 mg/dL (8-21)
[2021-09-28 13:01] LABS: ALBUMIN 2.7 g/dL (3.4-4.8); ASPARTATE AMINOTRANSFERASE 14 U/L (10-37); TOTAL BILIRUBIN 0.2 mg/dL (0.0-1.0)
[2021-09-28 13:18] LABS: ALANINE AMINOTRANSFERASE 10 U/L (12-78)
[2021-09-28 13:37] LABS: INR 0.9 (0.8-1.2); PROTHROMBIN TIME 9.9 SECS (9.5-12.5)
[2021-09-28] MEDS ORDERED: PANTOPRAZOLE SODIUM 40 MG/VIAL (PROTONIX) ONE (16:28)
[2021-09-28] MEDS ORDERED: PANTOPRAZOLE SODIUM 80 MG in NS 100 ML IV ONE (16:30)
[2021-09-28] MEDS ORDERED: ONDANSETRON HCL 4 MG/2 ML VIAL IVP PRN (18:00)
[2021-09-28] MEDS ORDERED: ALBUTEROL SULFATE 0.083% 2.5 MG/3 ML VIAL.NEB INH PRN (18:00)
[2021-09-28] MEDS: D5/0.45 NS 1,000 ML IV SCH (18:43)
[2021-09-28 20:59] VITALS: BP_SYST 131
[2021-09-29] MEDS: D5/0.45 NS 1,000 ML IV SCH ×3 (03:00→23:13)
[2021-09-29 07:34] LABS: BASOPHILS % (AUTO) 1.1 % (0.0-2.0); EOSINOPHILS # (AUTO) 0.1 K/uL (0.0-0.4); EOSINOPHILS % (AUTO) 3.7 % (0.0-4.0); LYMPHOCYTES # (AUTO) 0.8 K/uL (1.0-5.5); LYMPHOCYTES % (AUTO) 20.4 % (20.5-51.5); MEAN CORPUSCULAR HEMOGLOBIN 27 pg (27-31); MEAN CORPUSCULAR HGB CONC 32 % (32-36); MEAN CORPUSCULAR VOLUME 82 fL (79.0-98.0); MONOCYTES # (AUTO) 0.4 K/uL (0.0-1.0); MONOCYTES % (AUTO) 9.6 % (1.7-9.3); NEUTROPHILS # (AUTO) 2.5 K/uL (1.8-7.7); NEUTROPHILS % (AUTO) 65.2 % (40.0-70.0); PLATELET COUNT (AUTO) 363 K/uL (130-430); RED BLOOD CELL COUNT(AUTO) 2.57 MIL/uL (4.2-6.2); RED CELL DISTRIBUTION WIDTH 29.7 % (9.0-15.0); WHITE BLOOD COUNT (AUTO) 3.8 K/uL (4.8-10.8)
[2021-09-29 07:56] LABS: ANION GAP 10 (5-15); CALCIUM 8.1 mg/dL (8.4-11.0); CHLORIDE 109 mmol/L (98-107); CREATININE 0.55 mg/dL (0.55-1.30); GLUCOSE 93 mg/dL (70-99); POTASSIUM 3.3 mmol/L (3.5-5.1); SODIUM SERUM 144 mmol/L (136-145); UREA NITROGEN, BLOOD 9 mg/dL (8-21)
[2021-09-29 07:59] LABS: HEMATOCRIT 21.2 % (36-48); HEMOGLOBIN 6.8 g/dL (12.0-16.0)
[2021-09-29 08:00] VITALS: BP_SYST 125
[2021-09-29] MEDS: PANTOPRAZOLE SODIUM 40 MG/VIAL (PROTONIX) IVP SCH ×2 (09:10→20:51)
[2021-09-29] MEDS: KCL 20 mEq in 100 mL (PREMIX) 100 ML IV SCH ×2 (12:14→12:22)
[2021-09-29 15:40] VITALS: BP_SYST 118
[2021-09-29 15:55] VITALS: BP_SYST 119
[2021-09-29 20:00] VITALS: BP_SYST 124
[2021-09-29] MEDS: LORazepam 2 MG/ML VIAL IVP PRN (20:51)
[2021-09-30] VITALS (7 sets, daily range): BP systolic 118–194
[2021-09-30] MEDS ORDERED: fentaNYL CITRATE/PF 100 MCG/2 ML AMP ONE (06:56)
[2021-09-30] MEDS ORDERED: SIMETHICONE 40 MG/0.6 ML ML ONE (06:56)
[2021-09-30] MEDS ORDERED: MIDAZOLAM HCL 5 MG/5 ML VIAL ONE (06:56)
[2021-09-30] MEDS ORDERED: BENZOCAINE 20% 0.5mL UD SPRAY MM ONE (07:34)
[2021-09-30 08:33] LABS: ANION GAP 9 (5-15); CALCIUM 8.4 mg/dL (8.4-11.0); CHLORIDE 110 mmol/L (98-107); CREATININE 0.59 mg/dL (0.55-1.30); GLUCOSE 73 mg/dL (70-99); POTASSIUM 3.2 mmol/L (3.5-5.1); SODIUM SERUM 144 mmol/L (136-145); UREA NITROGEN, BLOOD 6 mg/dL (8-21)
[2021-09-30 08:47] LABS: BASOPHILS % (AUTO) 0.6 % (0.0-2.0); EOSINOPHILS # (AUTO) 0.2 K/uL (0.0-0.4); EOSINOPHILS % (AUTO) 5.3 % (0.0-4.0); HEMATOCRIT 28.8 % (36-48); HEMOGLOBIN 9.4 g/dL (12.0-16.0); MEAN CORPUSCULAR HEMOGLOBIN 28 pg (27-31); MEAN CORPUSCULAR HGB CONC 33 % (32-36); MEAN CORPUSCULAR VOLUME 84 fL (79.0-98.0); MONOCYTES # (AUTO) 0.5 K/uL (0.0-1.0); MONOCYTES % (AUTO) 11.8 % (1.7-9.3); NEUTROPHILS # (AUTO) 2.1 K/uL (1.8-7.7); NEUTROPHILS % (AUTO) 55.3 % (40.0-70.0); PLATELET COUNT (AUTO) 360 K/uL (130-430); RED BLOOD CELL COUNT(AUTO) 3.42 MIL/uL (4.2-6.2); RED CELL DISTRIBUTION WIDTH 25.5 % (9.0-15.0); WHITE BLOOD COUNT (AUTO) 3.9 K/uL (4.8-10.8)
[2021-09-30] MEDS: D5/0.45 NS 1,000 ML IV SCH ×2 (09:00→16:21)
[2021-09-30] MEDS ORDERED: POTASSIUM CHLORIDE 20 MEQ TAB.PRT.SR PO ONE (10:00)
[2021-09-30] MEDS: PANTOPRAZOLE SODIUM 40 MG/VIAL (PROTONIX) IVP SCH ×2 (10:15→20:53)
[2021-09-30] MEDS ORDERED: LOSARTAN POTASSIUM 50 MG TABLET (COZAAR) PO ONE (14:15)
[2021-09-30] MEDS ORDERED: amLODIPine BESYLATE 5 MG TABLET PO ONE (14:15)
[2021-09-30] MEDS ORDERED: GABAPENTIN 100 MG CAPSULE PO SCH (21:00)
[2021-09-30] MEDS ORDERED: SIMVASTATIN 20 MG TABLET PO SCH (21:00)
[2021-09-30] MEDS: LORazepam 2 MG/ML VIAL IVP PRN (21:40)
[2021-10-01] VITALS (7 sets, daily range): BP systolic 120–151
[2021-10-01] MEDS: D5/0.45 NS 1,000 ML IV SCH ×2 (04:26→15:00)
[2021-10-01 07:35] LABS: ANION GAP 7 (5-15); CALCIUM 8.5 mg/dL (8.4-11.0); CHLORIDE 109 mmol/L (98-107); CREATININE 0.58 mg/dL (0.55-1.30); GLUCOSE 87 mg/dL (70-99); POTASSIUM 3.5 mmol/L (3.5-5.1); SODIUM SERUM 142 mmol/L (136-145); UREA NITROGEN, BLOOD 7 mg/dL (8-21)
[2021-10-01 08:08] LABS: BASOPHILS % (AUTO) 0.6 % (0.0-2.0); EOSINOPHILS # (AUTO) 0.3 K/uL (0.0-0.4); HEMATOCRIT 28.7 % (36-48); HEMOGLOBIN 9.4 g/dL (12.0-16.0); LYMPHOCYTES # (AUTO) 0.9 K/uL (1.0-5.5); LYMPHOCYTES % (AUTO) 20.2 % (20.5-51.5); MEAN CORPUSCULAR HEMOGLOBIN 28 pg (27-31); MEAN CORPUSCULAR HGB CONC 33 % (32-36); MEAN CORPUSCULAR VOLUME 84 fL (79.0-98.0); MONOCYTES # (AUTO) 0.5 K/uL (0.0-1.0); MONOCYTES % (AUTO) 11.4 % (1.7-9.3); NEUTROPHILS # (AUTO) 2.8 K/uL (1.8-7.7); NEUTROPHILS % (AUTO) 61.8 % (40.0-70.0); PLATELET COUNT (AUTO) 356 K/uL (130-430); RED BLOOD CELL COUNT(AUTO) 3.41 MIL/uL (4.2-6.2); WHITE BLOOD COUNT (AUTO) 4.5 K/uL (4.8-10.8)
[2021-10-01] MEDS: PANTOPRAZOLE SODIUM 40 MG/VIAL (PROTONIX) IVP SCH (08:37)
[2021-10-01] MEDS ORDERED: POTASSIUM CHLORIDE 20 MEQ TAB.PRT.SR PO SCH (09:00)
[2021-10-01] MEDS ORDERED: PANTOPRAZOLE SODIUM 40 MG TAB PO SCH (09:00)
[2021-10-01] MEDS ORDERED: LOSARTAN POTASSIUM 50 MG TABLET (COZAAR) PO SCH (09:00)
[2021-10-01] MEDS ORDERED: CHOLECALCIFEROL (VITAMIN D3) 2,000 UNIT TABLET PO SCH (09:00)
[2021-10-01] MEDS ORDERED: amLODIPine BESYLATE 5 MG TABLET PO SCH (09:00)
[2021-10-01] MEDS ORDERED: FERR-69 PO (09:46)
[2021-10-01] MEDS ORDERED: DEXL60CA4 PO (09:46)
[2021-10-01] MEDS ORDERED: SUCRALFATE 1 GM/10 ML UDC GT SCH (11:30)
== END 2021-10-01 16:05 | disposition home health service (06) | DRG 377 ==
LOC: SED 10:39 → SMU 16:59
PROVIDERS: ADMIT Preventive Medicine Preventive Medicine/Occupational Environmental Medicine; ATTEND Preventive Medicine Preventive Medicine/Occupational Environmental Medicine
PROC: 30233N1 Transfusion of Nonautologous Red Blood Cells into Peripheral Vein, Percutaneous Approach (ICD-10-PCS; 2021-09-29)
PROC: 0DB78ZX Excision of Stomach, Pylorus, Via Natural or Artificial Opening Endoscopic, Diagnostic (ICD-10-PCS; 2021-09-30)
PROC: 0DB98ZX Excision of Duodenum, Via Natural or Artificial Opening Endoscopic, Diagnostic (ICD-10-PCS; principal; 2021-09-30 07:30)
DX: K25.4 Chronic or unspecified gastric ulcer with hemorrhage (principal); E43 Unspecified severe protein-calorie malnutrition; K44.9 Diaphragmatic hernia without obstruction or gangrene; K57.90 Diverticulosis of intestine, part unspecified, without perforation or abscess without bleeding; D64.9 Anemia, unspecified; J45.909 Unspecified asthma, uncomplicated; I10 Essential (primary) hypertension; E11.9 Type 2 diabetes mellitus without complications; Z20.822 Contact with and (suspected) exposure to COVID-19; D72.819 Decreased white blood cell count, unspecified; K29.60 Other gastritis without bleeding; Z88.0 Allergy status to penicillin; Z68.22 Body mass index [BMI] 22.0-22.9, adult
CPT/HCPCS: 36415; 36430; 43239; 71045; 80048; 80053; 85025; 85610-TC; 85730-TC; 86886; 86900; 86901; 86920; 87081; 88305; 88312; 88313; 93005; 96365; 99285; C9113; J2060; J2250; J3010; J3480; P9021

== ENCOUNTER 2023-11-16 15:46 | Emergency (ER) | payer OTHER, MEDICAID ==
[~2023-11-16] VITALS: Ht 157.5 cm; Wt 49.9 kg
[2023-11-16 15:46] VITALS: BP_SYST 136; PULSE 49; RESP 19; TEMP 97.7; O2SAT 99
[~2023-11-16 15:46] MED LIST changes: +DEXL60CA4 PO; +FERR-69 PO; +LOSA-415 PO; -LOSA100T3 PO; -OMEP20TA20 PO; +SIMV-343 PO; -SIMV20TA2 PO
[2023-11-16 16:41] LABS: BASOPHILS % (AUTO) 0.8 % (0.0-2.0); EOSINOPHILS # (AUTO) 0.3 K/uL (0.0-0.4); EOSINOPHILS % (AUTO) 5.4 % (0.0-4.0); HEMATOCRIT 23.2 % (36-48); HEMOGLOBIN 7.3 g/dL (12.0-16.0); LYMPHOCYTES % (AUTO) 22.1 % (20.5-51.5); MEAN CORPUSCULAR HEMOGLOBIN 22 pg (27-31); MEAN CORPUSCULAR HGB CONC 32 % (32-36); MEAN CORPUSCULAR VOLUME 70 fL (79.0-98.0); MONOCYTES # (AUTO) 0.4 K/uL (0.0-1.0); MONOCYTES % (AUTO) 9.2 % (1.7-9.3); NEUTROPHILS # (AUTO) 2.9 K/uL (1.8-7.7); NEUTROPHILS % (AUTO) 62.5 % (40.0-70.0); PLATELET COUNT (AUTO) 352 K/uL (130-430); RED BLOOD CELL COUNT(AUTO) 3.33 MIL/uL (4.2-6.2); RED CELL DISTRIBUTION WIDTH 16.6 % (9.0-15.0); WHITE BLOOD COUNT (AUTO) 4.7 K/uL (4.8-10.8)
[2023-11-16 17:00] LABS: ALANINE AMINOTRANSFERASE 9 U/L (12-78); ALBUMIN 3.1 g/dL (3.4-4.8); ANION GAP 6 (5-15); ASPARTATE AMINOTRANSFERASE 14 U/L (10-37); BILIRUBIN,DIRECT 0.1 mg/dL (0.0-0.3); CALCIUM 8.6 mg/dL (8.4-11.0); CARBON DIOXIDE 30 mmol/L (23-29); CHLORIDE 106 mmol/L (98-107); CREATININE 0.92 mg/dL (0.55-1.30); GLUCOSE 97 mg/dL (74-106); POTASSIUM 3.7 mmol/L (3.5-5.1); SODIUM SERUM 142 mmol/L (136-145); TOTAL BILIRUBIN 0.3 mg/dL (0.0-1.0); TOTAL PROTEIN, SERUM 6.7 g/dL (6.4-8.3); UREA NITROGEN, BLOOD 10 mg/dL (8-21)
[2023-11-16 17:32] LABS: INR 0.9 (0.8-1.2); PROTHROMBIN TIME 10.2 SECS (9.5-12.5)
[2023-11-16] MEDS ORDERED: PRO40 PO (17:57)
[2023-11-16] MEDS ORDERED: ESCI20TA PO (17:57)
[2023-11-16 20:17] VITALS: BP_SYST 178; PULSE 64; RESP 16; TEMP 97.5; O2SAT 96
== END 2023-11-16 20:15 | disposition home or self-care (01) ==
LOC: SED 15:46
DX: D64.89 Other specified anemias (principal); R53.1 Weakness; R00.1 Bradycardia, unspecified; J45.909 Unspecified asthma, uncomplicated; E11.9 Type 2 diabetes mellitus without complications; I10 Essential (primary) hypertension; Z88.0 Allergy status to penicillin; Z79.899 Other long term (current) drug therapy; Z79.2 Long term (current) use of antibiotics
CPT/HCPCS: 36415; 71045; 80048; 80076; 83735; 85025; 85610; 85730; 86886; 86900; 86901; 93005; 99285

== ENCOUNTER 2023-12-06 16:35 | Inpatient (IN) | payer OTHER, MEDICAID ==
[~2023-12-06] VITALS: Ht 154.9 cm; Wt 54.4 kg
[~2023-12-06 16:35] MED LIST changes: -ALBU2.5V7 INH; -AMLO5TAB92 PO; -CETI10CA PO; -CHOL200041 PO; -DEXL60CA4 PO; +ESCI20TA PO; -FERR-69 PO; -GABA-529 PO; -POTA-197 PO; +PRO40 PO; -SIMV-343 PO; -VIS25 PO
[2023-12-06 17:04] VITALS: BP_SYST 149; PULSE 53; RESP 14; TEMP 97.4; O2SAT 100
[2023-12-06 18:11] LABS: EOSINOPHILS # (AUTO) 0.2 K/uL (0.0-0.4); LYMPHOCYTES # (AUTO) 0.8 K/uL (1.0-5.5); MONOCYTES # (AUTO) 0.4 K/uL (0.0-1.0)
[2023-12-06 18:23] LABS: ALANINE AMINOTRANSFERASE 7 U/L (12-78); ALBUMIN 3.2 g/dL (3.4-4.8); ANION GAP 8 (5-15); ASPARTATE AMINOTRANSFERASE 14 U/L (10-37); BASOPHILS % (AUTO) 0.7 % (0.0-2.0); BILIRUBIN,DIRECT 0.1 mg/dL (0.0-0.3); CALCIUM 8.6 mg/dL (8.4-11.0); CARBON DIOXIDE 27 mmol/L (23-29); CHLORIDE 105 mmol/L (98-107); CREATININE 1.07 mg/dL (0.55-1.30); EOSINOPHILS % (AUTO) 4.6 % (0.0-4.0); GLUCOSE 116 mg/dL (74-106); LIPASE 24 U/L (16-77); LYMPHOCYTES % (AUTO) 18.5 % (20.5-51.5); MEAN CORPUSCULAR HEMOGLOBIN 21 pg (27-31); MEAN CORPUSCULAR HGB CONC 31 % (32-36); MEAN CORPUSCULAR VOLUME 68 fL (79.0-98.0); MONOCYTES % (AUTO) 8.3 % (1.7-9.3); NEUTROPHILS # (AUTO) 2.9 K/uL (1.8-7.7); NEUTROPHILS % (AUTO) 67.9 % (40.0-70.0); PLATELET COUNT (AUTO) 297 K/uL (130-430); POTASSIUM 4.1 mmol/L (3.5-5.1); RED BLOOD CELL COUNT(AUTO) 3.15 MIL/uL (4.2-6.2); RED CELL DISTRIBUTION WIDTH 16.8 % (9.0-15.0); SODIUM SERUM 140 mmol/L (136-145); TOTAL BILIRUBIN 0.3 mg/dL (0.0-1.0); TOTAL PROTEIN, SERUM 6.8 g/dL (6.4-8.3); UREA NITROGEN, BLOOD 11 mg/dL (8-21); WHITE BLOOD COUNT (AUTO) 4.3 K/uL (4.8-10.8)
[2023-12-06 18:30] LABS: HEMATOCRIT 21.4 % (36-48); HEMOGLOBIN 6.7 g/dL (12.0-16.0)
[2023-12-06 18:38] LABS: PROTHROMBIN TIME 10.3 SECS (9.5-12.5)
[2023-12-06 18:54] LABS: HYPOCHROMASIA 2+; POLYCHROMASIA 1+
[2023-12-06 18:55] LABS: ANISOCYTOSIS 1+; OVALOCYTES FEW
[2023-12-06] MEDS ORDERED: LOSA-413 PO (19:25)
[2023-12-06] MEDS ORDERED: FER300L PO (19:33)
[2023-12-06 21:13] LABS: TOTAL IRON BIND. CAPACITY 460 ug/dL (250-450)
[2023-12-06 21:27] VITALS: BP_SYST 162; PULSE 54; RESP 18; TEMP 97.9; O2SAT 98
[2023-12-07] MEDS ORDERED: cloNIDine HCL 0.1 MG TABLET PO PRN (02:30)
[2023-12-07] MEDS: cloNIDine HCL 0.1 MG TABLET PO ONE (02:38)
[2023-12-07] MEDS: FUROSEMIDE 40 MG/4 ML VIAL IVP ONE (02:38)
[2023-12-07 09:37] LABS: BASOPHILS % (AUTO) 0.6 % (0.0-2.0); EOSINOPHILS # (AUTO) 0.2 K/uL (0.0-0.4); EOSINOPHILS % (AUTO) 4.4 % (0.0-4.0); HEMATOCRIT 32.4 % (36-48); HEMOGLOBIN 10.3 g/dL (12.0-16.0); LYMPHOCYTES # (AUTO) 0.8 K/uL (1.0-5.5); LYMPHOCYTES % (AUTO) 16.6 % (20.5-51.5); MEAN CORPUSCULAR HEMOGLOBIN 23 pg (27-31); MEAN CORPUSCULAR HGB CONC 32 % (32-36); MEAN CORPUSCULAR VOLUME 73 fL (79.0-98.0); MONOCYTES # (AUTO) 0.5 K/uL (0.0-1.0); MONOCYTES % (AUTO) 11.1 % (1.7-9.3); NEUTROPHILS # (AUTO) 3.2 K/uL (1.8-7.7); NEUTROPHILS % (AUTO) 67.3 % (40.0-70.0); PLATELET COUNT (AUTO) 295 K/uL (130-430); RED BLOOD CELL COUNT(AUTO) 4.46 MIL/uL (4.2-6.2); RED CELL DISTRIBUTION WIDTH 19.5 % (9.0-15.0); WHITE BLOOD COUNT (AUTO) 4.8 K/uL (4.8-10.8)
[2023-12-07 10:09] VITALS: O2SAT 99
[2023-12-07 12:10] VITALS: BP_SYST 144; PULSE 47; RESP 18; TEMP 97.9; O2SAT 100
[2023-12-07 16:04] VITALS: BP_SYST 160; PULSE 50; RESP 19; TEMP 97; O2SAT 100
[2023-12-07] MEDS: SOD FERRIC GLUC COMPLEX/SUC 125 MG in NS 100 ML IV SCH (18:19)
[2023-12-07 20:00] VITALS: BP_SYST 155; PULSE 62; RESP 18; TEMP 97.3; O2SAT 98
[2023-12-08 07:59] VITALS: BP_SYST 145; PULSE 51; RESP 18; TEMP 97.4; O2SAT 97
[2023-12-08 08:26] LABS: BASOPHILS % (AUTO) 0.7 % (0.0-2.0); EOSINOPHILS # (AUTO) 0.3 K/uL (0.0-0.4); EOSINOPHILS % (AUTO) 5.9 % (0.0-4.0); HEMATOCRIT 35.7 % (36-48); HEMOGLOBIN 11.4 g/dL (12.0-16.0); LYMPHOCYTES # (AUTO) 1.5 K/uL (1.0-5.5); LYMPHOCYTES % (AUTO) 25.4 % (20.5-51.5); MEAN CORPUSCULAR HEMOGLOBIN 23 pg (27-31); MEAN CORPUSCULAR HGB CONC 32 % (32-36); MEAN CORPUSCULAR VOLUME 73 fL (79.0-98.0); MONOCYTES # (AUTO) 0.7 K/uL (0.0-1.0); MONOCYTES % (AUTO) 11.3 % (1.7-9.3); NEUTROPHILS # (AUTO) 3.3 K/uL (1.8-7.7); NEUTROPHILS % (AUTO) 56.7 % (40.0-70.0); PLATELET COUNT (AUTO) 340 K/uL (130-430); RED BLOOD CELL COUNT(AUTO) 4.91 MIL/uL (4.2-6.2); WHITE BLOOD COUNT (AUTO) 5.9 K/uL (4.8-10.8)
[2023-12-08 08:37] LABS: RED CELL DISTRIBUTION WIDTH 20.7 % (9.0-15.0)
[2023-12-08 08:38] LABS: ANION GAP 10 (5-15); CALCIUM 9.3 mg/dL (8.4-11.0); CARBON DIOXIDE 29 mmol/L (23-29); CHLORIDE 100 mmol/L (98-107); CREATININE 0.97 mg/dL (0.55-1.30); GLUCOSE 119 mg/dL (74-106); POTASSIUM 3.5 mmol/L (3.5-5.1); SODIUM SERUM 139 mmol/L (136-145); UREA NITROGEN, BLOOD 12 mg/dL (8-21)
[2023-12-08 08:57] LABS: TOTAL IRON BIND. CAPACITY 510 ug/dL (250-450)
[2023-12-08 09:27] LABS: BILIRUBIN,URINE NEGATIVE (NEGATIVE); CLARITY/URINE CLEAR (CLEAR); COLOR,URINE YELLOW (YELLOW); GLUCOSE,URINE NEGATIVE (NEGATIVE); KETONES,URINE NEGATIVE (NEGATIVE); LEUKOCYTE ESTERASE ,URINE NEGATIVE (NEGATIVE); NITRITE, URINE NEGATIVE (NEGATIVE); PROTEIN URINE NEGATIVE (NEGATIVE)
[2023-12-08 09:30] LABS: BLOOD, URINE TRACE (NEGATIVE)
[2023-12-08 09:39] VITALS: O2SAT 95
[2023-12-08 09:44] LABS: RBC,URINE 0-3 /HPF (0-3); WBC,URINE 0-3 /HPF (0-3)
[2023-12-08 09:45] LABS: BACTERIA,URINE None Seen /HPF (None Seen)
[2023-12-08 11:30] VITALS: BP_SYST 164; PULSE 53; RESP 16; TEMP 97.4; O2SAT 97
[2023-12-08] MEDS: LORazepam 1 MG TABLET PO PRN (15:33)
[2023-12-08 16:02] VITALS: BP_SYST 141; PULSE 62; RESP 20; TEMP 97; O2SAT 94
[2023-12-08 20:00] VITALS: BP_SYST 158; PULSE 52; RESP 18; TEMP 97.3; O2SAT 100
[2023-12-08] MEDS: METOPROLOL SUCCINATE 25 MG TAB.SR.24H (TOPROL XL) PO ONE (21:30)
[2023-12-09] VITALS: BP_SYST 156; RESP 18; TEMP 97.6; O2SAT 98
[2023-12-09 08:03] LABS: BASOPHILS % (AUTO) 0.5 % (0.0-2.0); EOSINOPHILS # (AUTO) 0.2 K/uL (0.0-0.4); EOSINOPHILS % (AUTO) 5.1 % (0.0-4.0); HEMATOCRIT 32.4 % (36-48); HEMOGLOBIN 10.4 g/dL (12.0-16.0); LYMPHOCYTES # (AUTO) 0.9 K/uL (1.0-5.5); LYMPHOCYTES % (AUTO) 21.1 % (20.5-51.5); MEAN CORPUSCULAR HEMOGLOBIN 23 pg (27-31); MEAN CORPUSCULAR HGB CONC 32 % (32-36); MEAN CORPUSCULAR VOLUME 72 fL (79.0-98.0); MONOCYTES # (AUTO) 0.6 K/uL (0.0-1.0); MONOCYTES % (AUTO) 12.8 % (1.7-9.3); NEUTROPHILS # (AUTO) 2.7 K/uL (1.8-7.7); NEUTROPHILS % (AUTO) 60.5 % (40.0-70.0); PLATELET COUNT (AUTO) 298 K/uL (130-430); RED BLOOD CELL COUNT(AUTO) 4.48 MIL/uL (4.2-6.2); RED CELL DISTRIBUTION WIDTH 20.6 % (9.0-15.0); WHITE BLOOD COUNT (AUTO) 4.4 K/uL (4.8-10.8)
[2023-12-09 08:17] LABS: ANION GAP 9 (5-15); CALCIUM 8.7 mg/dL (8.4-11.0); CARBON DIOXIDE 27 mmol/L (23-29); CHLORIDE 103 mmol/L (98-107); CREATININE 0.79 mg/dL (0.55-1.30); GLUCOSE 87 mg/dL (74-106); POTASSIUM 3.2 mmol/L (3.5-5.1); SODIUM SERUM 139 mmol/L (136-145); UREA NITROGEN, BLOOD 11 mg/dL (8-21)
[2023-12-09 08:40] VITALS: O2SAT 100
[2023-12-09] MEDS: METOPROLOL SUCCINATE 25 MG TAB.SR.24H (TOPROL XL) PO SCH (09:00)
[2023-12-09 09:57] VITALS: BP_SYST 142; PULSE 48; RESP 14; TEMP 97.7; O2SAT 100
[2023-12-09] MEDS ORDERED: METO-304 PO (14:25)
[2023-12-09] MEDS ORDERED: LOSA50TA28 PO (14:29)
[2023-12-09] MEDS ORDERED: PRO40 PO (14:30)
[2023-12-09] MEDS: POTASSIUM CHLORIDE 20 MEQ TABLET.ER PO ONE (15:43)
[2023-12-09 15:57] VITALS: BP_SYST 133; PULSE 54; RESP 14; TEMP 98.2; O2SAT 100
[2023-12-09] MEDS ORDERED: EPOETIN ALFA 3,000 UNITS/ML VIAL SUBCUT SCH (17:00)
[2023-12-10] MEDS ORDERED: FOLIC ACID 1 MG TABLET PO SCH (09:00)
== END 2023-12-09 16:50 | disposition home health service (06) | DRG 812 ==
LOC: SED 16:35 → SMU 20:25
PROVIDERS: ADMIT Specialist; ATTEND Specialist
PROC: 30233N1 Transfusion of Nonautologous Red Blood Cells into Peripheral Vein, Percutaneous Approach (ICD-10-PCS; principal; 2023-12-06)
DX: D64.9 Anemia, unspecified (principal); E44.1 Mild protein-calorie malnutrition; K44.9 Diaphragmatic hernia without obstruction or gangrene; I10 Essential (primary) hypertension; F03.90 Unspecified dementia, unspecified severity, without behavioral disturbance, psychotic disturbance, mood disturbance, and anxiety; E53.8 Deficiency of other specified B group vitamins; Z79.899 Other long term (current) drug therapy; Z88.8 Allergy status to other drugs, medicaments and biological substances; Z68.22 Body mass index [BMI] 22.0-22.9, adult
CPT/HCPCS: 36415; 80048; 80076; 81000; 81001; 81015; 82272; 83010; 83540; 83550; 83690; 85025; 85044; 85610; 85730; 86886; 86900; 86901; 86920; 97530-GP; 99291; J1940; J2916; P9021